=== PATIENT | male | born 1995 | race African-American/Black ===

== ENCOUNTER 2017-01-19 11:08 | Emergency (ER) | payer MEDICAID ==
[~2017-01-19] VITALS: Ht 165.1 cm; Wt 57.0 kg
[2017-01-19] MEDS ORDERED: KETOROLAC 30MG/ML VIAL IM ONE (13:00)
[2017-01-19 14:41] VITALS: BP 120/70
== END 2017-01-19 14:43 | disposition home or self-care (01) ==
LOC: ER 12:57
DX: R51 Headache (principal); F17.200 Nicotine dependence, unspecified, uncomplicated; F12.10 Cannabis abuse, uncomplicated; H53.8 Other visual disturbances; H53.149 Visual discomfort, unspecified
CPT/HCPCS: 96372; 99283; J1885; Z7610

== ENCOUNTER 2017-06-11 14:38 | Emergency (ER) | payer MEDICAID ==
[~2017-06-11] VITALS: Ht 165.1 cm; Wt 57.0 kg
[2017-06-11 15:18] VITALS: BP 127/74
== END 2017-06-11 18:10 | disposition left against medical advice (07) ==
LOC: ER 15:12
DX: Z53.21 Procedure and treatment not carried out due to patient leaving prior to being seen by health care provider (principal)